=== PATIENT | female | born 1995 | race Two or more races ===

== ENCOUNTER 2018-07-22 12:09 | Emergency (ER) | payer MEDICAID ==
[~2018-07-22] VITALS: Ht 170.2 cm; Wt 68.0 kg
[2018-07-22 11:52] VITALS: BP 111/69
[2018-07-22 12:39] LABS: APPEARANCE,URINE CLEAR; BILIRUBIN, URINE NEGATIVE (NEGATIVE); COLOR,URINE PALE YELLOW; GLUCOSE, URINE (UA) NEGATIVE (NEGATIVE); HEMATOCRIT 42.3 % (37.0-47.0); HEMOGLOBIN 14.1 G/DL (12.0-16.0); KETONES,URINE 1+ (NEGATIVE); LEUKOCYTE ESTERASE ,URINE NEGATIVE (NEGATIVE); MEAN CORPUSCULAR VOLUME 80 FL (80-99); NITRITE,URINE NEGATIVE (NEGATIVE); PH,URINE 7 (4.5-8.0); PLATELET COUNT 252 K/UL (150-450); PROTEIN,URINE 2+ (NEGATIVE); RED BLOOD COUNT 5.26 M/UL (4.20-5.40); UROBILINOGEN,URINE NORMAL MG/DL (0.0-1.0); WHITE BLOOD COUNT 11.1 K/UL (4.8-10.8)
--- NOTE | 2018-07-22 12:54 | Emergency Room Report ---
History of Present Illness General Chief Complaint: Seizure Source: EMS Present Illness HPI 23-year-old female presents to the emergency department brought by EMS for altered mental status as post grand mal seizure. EMS estimates that patient was seizing for approximately 10 minutes. EMS gave 5 mg Versed enroute. Patient has a history of grand mal seizures however she hasn't had a seizure for over 10 years according to mother. Mother states that patient was previously well managed on an 100 mg Trileptal 3 times a day however over the course of the last 4 months her neurologist has decrease his dosage to 300mg BID. Mother states she has been at this dose for approximately 3 months. She also reports that she has not denies precise with giving the medication every 12 hours. Patient has a history of cerebral palsy and autism. In the last 4 years patient also developed visual hallucinations and self harm. Pt was placed onto Ziprasidone. 20mg qam , and 80mg qpm. Mother denies recent illnesses, fevers, urinary frequency. Mother denies hx of illicit drug use by pt. and Denies recent head trauma. Allergies: Coded Allergies: No Known Allergies (Unverified , 07/22/18) Patient History Past Medical History: see triage record, seizures, other - developmental delay Pertinent Family History: none Last Menstrual Period: 07/08/2018 - Pt has arm implant Reviewed Nursing Documentation: PMH: Agreed; PSxH: Agreed Nursing Documentation-PMH Past Medical History: No History, Except For Hx Neurological Problems: Yes - Cerebral palsy; Autism Hx Seizures: Yes - Last one in 2007 Review of Systems All Other Systems: negative except mentioned in HPI Physical Exam Vital Signs Date Time Temp Pulse Resp B/P (MAP) Pulse Ox O2 Delivery O2 Flow Rate FiO2 07/22/18 11:49 97.2 116 30 111/69 94 Room Air Sp02 EP Interpretation: reviewed, normal General Appearance: well appearing, no apparent distress, non-toxic, other, Postictal Head: normocephalic, atraumatic Eyes: bilateral eye normal inspection, bilateral eye PERRL, bilateral eye other - no photophobia, no abnormal gaze ENT: hearing grossly normal, normal voice - on re-eval Neck: full range of motion Respiratory: chest non-tender, lungs clear, normal breath sounds, no wheezing, speaking full sentences Cardiovascular #1: regular rate, rhythm, tachycardia Gastrointestinal: normal bowel sounds, non tender, soft Musculoskeletal: back normal, non-tender Neurologic: alert, responsive, motor strength/tone normal, sensory intact, speech normal, other - Pt. postictal, grossly normal Psychiatric: other - developmental delay Skin: normal color, no rash, warm/dry, well hydrated Medical Decision Making PA Attestation Dr. clarke is my supervising Physician whom patient management has been discussed with. Diagnostic Impression: Primary Impression: Epileptic seizure, generalized ER Course 23-year-old female presents to the emergency department brought by EMS for altered mental status as post grand mal seizure. EMS estimates that patient was seizing for approximately 10 minutes. EMS gave 5 mg Versed enroute. Patient has a history of grand mal seizures however she hasn't had a seizure for over 10 years according to mother. Mother states that patient was previously well managed on an 100 mg Trileptal 3 times a day however over the course of the last 4 months her neurologist has decrease his dosage to 300mg BID. Mother states she has been at this dose for approximately 3 months. She also reports that she has not denies precise with giving the medication every 12 hours. Patient has a history of cerebral palsy and autism. In the last 4 years patient also developed visual hallucinations and self harm. Pt was placed onto Ziprasidone. 20mg qam , and 80mg qpm. Mother denies recent illnesses, fevers, urinary frequency. Mother denies hx of illicit drug use by pt. and Denies recent head trauma. Ddx considered but are not limited to seizure, meningitis, infection, CVA/TIA, intracranial hemorrhage, intracranial process Vital signs: he is afebrile, vital signs are WNL H&PE are most consistent with status post seizure ORDERS: See lab results attached. -CMP: high anion gap with decreased CO2 consistent with postictal , mildly elevated glucose of 165, otherwise unremarkable -CBC : unrmarkable -Normal CK -UA: WNL no evidence of UTI- some RBC's and protein -UDS: positive for BZD -Serum tox: negative for ETOH, or salicylates or tylenol ED INTERVENTIONS: -Ativan 1mg Patient is under observance and slowly improves out of postictal state to what mother states is her baseline. As mother is care provider and has power of assistant prosecuting attorney discussed with her options of either admission versus outpatient close follow-up. Mother states that she would feel most comfortable with going back to dosage of previous medication that was working for her daughter for over 10 years. Other states that she is comfortable taking her daughter home and will keep a close eye on her. Discussed with mother need for close neurological follow-up. DISCHARGE: At this time pt. is stable for d/c to home. Will provide printed patient care instructions, and any necessary prescriptions. Care plan and follow up instructions have been discussed with the patient prior to discharge. Labs Test 07/22/18 12:25 White Blood Count 11.1 K/UL (4.8-10.8) Red Blood Count 5.26 M/UL (4.20-5.40) Hemoglobin 14.1 G/DL (12.0-16.0) Hematocrit 42.3 % (37.0-47.0) Mean Corpuscular Volume 80 FL (80-99) Mean Corpuscular Hemoglobin 26.8 PG (27.0-31.0) Mean Corpuscular Hemoglobin Concent 33.3 G/DL (32.0-36.0) Red Cell Distribution Width 11.0 % (11.6-14.8) Platelet Count 252 K/UL (150-450) Mean Platelet Volume 6.6 FL (6.5-10.1) Neutrophils (%) (Auto) % (45.0-75.0) Lymphocytes (%) (Auto) % (20.0-45.0) Monocytes (%) (Auto) % (1.0-10.0) Eosinophils (%) (Auto) % (0.0-3.0) Basophils (%) (Auto) % (0.0-2.0) Differential Total Cells Counted 100 Neutrophils % (Manual) 82 % (45-75) Lymphocytes % (Manual) 9 % (20-45) Monocytes % (Manual) 0 % (1-10) Eosinophils % (Manual) 0 % (0-3) Basophils % (Manual) 0 % (0-2) Band Neutrophils 9 % (0-8) Platelet Estimate Adequate Platelet Morphology Normal Microcytosis 1+ Urine Color Pale yellow Urine Appearance Clear Urine pH 7 (4.5-8.0) Urine Specific [place] 1.010 (1.005-1.035) Urine Protein 2+ (NEGATIVE) Urine Glucose (UA) Negative (NEGATIVE) Urine Ketones 1+ (NEGATIVE) Urine Blood 2+ (NEGATIVE) Urine Nitrite Negative (NEGATIVE) Urine Bilirubin Negative (NEGATIVE) Urine Urobilinogen Normal MG/DL (0.0-1.0) Urine Leukocyte Esterase Negative (NEGATIVE) Urine RBC 2-4 /HPF (0 - 2) Urine WBC 0 /HPF (0 - 2) Urine Squamous Epithelial Cells Occasional /LPF Urine Bacteria Occasional /HPF (NONE) Urine HCG, Qualitative Negative (NEGATIVE) Sodium Level 138 MMOL/L (136-145) Potassium Level 3.7 MMOL/L (3.5-5.1) Chloride Level 102 MMOL/L (98-107) Carbon Dioxide Level 19 MMOL/L (21-32) Anion Gap 17 mmol/L (5-15) Blood Urea Nitrogen 15 mg/dL (7-18) Creatinine 0.8 MG/DL (0.55-1.30) Estimat Glomerular Filtration Rate > 60 mL/min (>60) Glucose Level 165 MG/DL (74-106) Calcium Level 8.8 MG/DL (8.5-10.1) Total Bilirubin 0.2 MG/DL (0.2-1.0) Aspartate Amino Transf (AST/SGOT) 18 U/L (15-37) Alanine Aminotransferase (ALT/SGPT) 25 U/L (12-78) Alkaline Phosphatase 77 U/L (46-116) Total Creatine Kinase 69 U/L (26-308) Total Protein 8.3 G/DL (6.4-8.2) Albumin 3.9 G/DL (3.4-5.0) Globulin 4.4 g/dL Albumin/Globulin Ratio 0.9 (1.0-2.7) Salicylates Level 0.8 ug/mL (2.8-20) Urine Opiates Screen Negative (NEGATIVE) Acetaminophen Level < 2 MCG/ML (10-30) Urine Barbiturates Screen Negative (NEGATIVE) Phencyclidine (PCP) Screen Negative (NEGATIVE) Urine Amphetamines Screen Negative (NEGATIVE) Urine Benzodiazepines Screen Positive (NEGATIVE) Urine Cocaine Screen Negative (NEGATIVE) Urine Marijuana (THC) Screen Negative (NEGATIVE) Serum Alcohol < 3 mg/dL EKG Diagnostic Results EP Interpretation: Dr. Dupont Rate: tachycardiac - 120 Rhythm: NSR ST Segments: no acute changes ASA given to the pt in ED: No PA Scribe Text This Interpretation was scribed by TAYLOR Lozada. Last Vital Signs Date Time Temp Pulse Resp B/P (MAP) Pulse Ox O2 Delivery O2 Flow Rate FiO2 07/22/18 11:52 97.2 122 39 111/69 98 Room Air Status: improved Disposition: HOME, SELF-CARE - With mother who is caregiver for pt. Condition: Stable Scripts Oxcarbazepine* (TRILEPTAL*) 600 Mg Tablet 600 MG PO BID, #28 TAB Prov: Joyce Lozada 07/22/18 Patient Instructions: Seizure, Adult Additional Instructions: Take medications as directed. -*INCREASE TRILEPTAL TO 600MG TWICE A DAY * Follow up with a Primary Care Provider in 3-5 days, For Neurology Referral and Follow up evaluation --Please review list of primary care clinics, if you do not already have a primary care provider Return sooner to ED if new symptoms occur, or current symptoms become worse. - Please note that this Emergency Department Report was dictated using [employer] technology software, occasionally this can lead to erroneous entry secondary to interpretation by the dictation equipment. Joyce Lozada Jul 22, 2018 12:54
[2018-07-22 12:59] LABS: ANION GAP 17 mmol/L (5-15); BLOOD UREA NITROGEN 15 mg/dL (7-18); CALCIUM 8.8 MG/DL (8.5-10.1); CARBON DIOXIDE 19 MMOL/L (21-32); CHLORIDE 102 MMOL/L (98-107); CREATININE 0.8 MG/DL (0.55-1.30); POTASSIUM 3.7 MMOL/L (3.5-5.1); SODIUM 138 MMOL/L (136-145)
[2018-07-22 13:05] LABS: ALANINE AMINOTRANSFERASE 25 U/L (12-78); ALBUMIN 3.9 G/DL (3.4-5.0); ALBUMIN/GLOBULIN RATIO 0.9 (1.0-2.7); ALKALINE PHOSPHATASE 77 U/L (46-116); ASPARTATE AMINO TRANSFERASE 18 U/L (15-37); BILIRUBIN,TOTAL 0.2 MG/DL (0.2-1.0); CREATINE KINASE 69 U/L (26-308)
[2018-07-22 13:52] VITALS: BP 125/78
[2018-07-22] MEDS ORDERED: Sodium Chloride 500ML 500 ML IV ONE (14:00)
[2018-07-22] MEDS ORDERED: TRILEPTAL600 MG PO (14:31)
[2018-07-22 14:55] VITALS: BP 130/66
--- NOTE | 2018-07-25 16:55 | Cardiology Report ---
APPROVED REPORT EKG Measurement Heart [id number] Sinus tachycardia Otherwise normal ECG
== END 2018-07-22 14:58 | disposition home or self-care (01) ==
LOC: EDBD 12:09 → EMR 13:10
DX: G40.909 Epilepsy, unspecified, not intractable, without status epilepticus (principal); G80.9 Cerebral palsy, unspecified; F84.0 Autistic disorder; R00.0 Tachycardia, unspecified
CPT/HCPCS: 36415; 80053; 80307; 80329; 81003; 81025; 82550; 85007; 85025; 93005; 96360; 99284